=== PATIENT | male | born 1960 | race Caucasian/White ===

== ENCOUNTER 2018-02-16 09:20 | Day surgery (SDC) | payer MEDICAID, SELFPAY ==
--- NOTE | 2018-02-16 09:31 | EKG12_ITS ---
Test Reason : PRE OP Blood Pressure : / mmHG Vent. Rate : 096 BPM Atrial Rate : 096 BPM P-R Int : 140 ms QRS Dur : 090 ms QT Int : 364 ms P-R-T Axes : 035 021 037 degrees QTc Int : 459 ms Normal sinus rhythm Normal ECG Confirmed by MONET GARCÍA, MATTHEW ([id number]), content editor KRISTINE ABERNATHY ([id number]) on 02/22/2018 2:25:42 PM Referred By: Marlo Andrews Confirmed By:MATTHEW HEALY MD
[2018-02-16 09:43] VITALS: BP 167/91; PULSE 96; RESP 18; TEMP 37.2; O2SAT 96; BMI 28.3
[2018-02-16 09:47] LABS: Hematocrit 45.4 % (40-54); Hemoglobin 15.6 g/dl (13.0-16.5); Mean Corp Hgb Conc 34.4 g/gl (32-36); Mean Corpuscular Hgb 31.4 pg (27.0-32.0); Mean Corpuscular Volume 91.3 fL (80-94); Mean Platelet Vol. 10.1 fl (6.2-12.0); Platelet Count 197 K/mm3 (150-450); RBC Distribution Width CV 12.5 % (11.6-14.6); RBC Distribution Width SD 41.8 fl (35.1-43.9); Red Blood Count 4.97 M/mm3 (4.6-6.2); Scan Indicated on CBC? Y/N NO
[2018-02-16 10:03] LABS: Prothrombin Time (Protime)PT. 13.2 SECONDS (11.7-14.9)
[2018-02-16 10:04] LABS: Partial Thromboplast Time 29.4 Seconds (24.1-36.2)
[2018-02-16 10:12] LABS: AST(SGOT) 33 U/L (15-37); Alanine Aminotransfer ALT/SGPT 45 U/L (16-61); Albumin, Serum 4.2 g/dL (3.2-5.0); Alkaline Phosphatase 83 U/L (45-117); Anion Gap 9 (5-15); BUN 12 mg/dL (7-18); BUN/Creat Ratio 12.2 RATIO (10-20); Bilirubin, Direct 0.09 mg/dL (0.00-0.30); Calcium,Total 8.9 mg/dL (8.5-10.1); Chloride 102 mmol/L (98-107); Creatinine, Serum 0.99 mg/dL (0.70-1.30); EST Glomerular Filtration Rate 83 mL/min (>60); Est Glom Filt Rate - Afr Amer 100 mL/min (>60); Estimated Creatinine Clearance 82.32 ml/min; Globulin 3.9 g/dL (2.2-4.2); Glucose 110 mg/dL (74-106); Potassium 3.9 mmol/L (3.5-5.1); Protein, Total 8.1 g/dL (6.4-8.2); Sodium Level 138 mmol/L (136-145)
[2018-02-16] MEDS: Oxymetazoline 0.05% 1 SPRAY SPRAY.BTL 15 SPRAY (11:34)
[2018-02-16] MEDS: Lidocaine 4% 50 ML Bottle (11:34)
--- NOTE | 2018-02-16 11:35 | SEP_PTH ---
PATIENT: CEDRICK DHILLON . [place] [facility] [place][id number] AGE/SX: 57/M ROOM: RE02/16/[address]: Dr. Marlo Andrews MD : 1960 BED: DIS: 02/16/2018 SPEC #: [id number] RECD: 02/16/18 13:16 STATUS: COLEENArlen GILL #: [id number] FELICIA: 02/16/18 11:[address]: Marlo Andrews DEPT: SURGICAL PATHOLOGY RECD BY: Alexy Joe ENTERED: 02/16/18 13:41 SP TYPE: SEPTUM OTHR DR: No Primary Care Phys Tissues: A - Nasal septum, NOS B - Ethmoid sinus, NOS Procedures: Decalcification bone/plaque Surgery Specimen Level III Surgery Specimen Level IV HEADER OPERATION: Endoscopic nasal/sinus with partial ethmoidectomy PRE-OP DIAGNOSIS: Polyp of nasal sinus TISSUE SUBMITTED: A ? Right nasal septum contents, B ? Right sinus contents MICROSCOPIC DIAGNOSIS A. Right nasal septum contents: Fragments of bone and cartilage, clinically nasal septum. B. Right sinus contents: Fragments of respiratory mucosa with chronic inflammation. Fragments of cartilage. SJ:lincoln 02/20/18 MICROSCOPIC DESCRIPTION Slides are reviewed. GROSS DESCRIPTION A - Received in fixative is one container labeled with the patient's name and designated right nasal septum contents. The specimen consists of a red-medina bony tissue measuring 2.5 x 0.8 x 0.5 cm. The specimen is submitted in its entirety in one cassette after decalcification. B - Received in fixative is one container labeled with the patient's name and designated right sinus contents. The specimen consists of multiple irregular and polypoid fragments of pink-medina soft tissue that in aggregate measure 2.5 x 2 x 0.3 cm. The specimen is totally submitted in one cassette. / AM:lincoln 02/16/18 TC:3 CPT: 94226, 04089, 79901
[2018-02-16] MEDS: Bacitracin 500 UNITS/GM PACKET (12:40)
[2018-02-16] MEDS: Silver Nitrate (BKC) 1 EACH (12:42)
--- NOTE | 2018-02-16 12:53 | DCINST_ITS ---
You will use the following diet at home:: No restrictions Your food should be the consistency of: Regular Discharge Activity: Return to Normal Activity Call your doctor if your incision/area has: Sudden Increased Bleeding Call your doctor if you observe: Fever of 101 or Higher, Uncontrolled pain Allergies/Adverse Reactions: Allergies No Known Allergies Allergy (Verified 02/12/18 13:54) Medications to take at Discharge Amitriptyline HCl [Elavil] 25 mg PO QHS 02/12/18 RX: Aspirin E.C. [Ecotrin] 81 mg PO DAILY@0800 02/12/18 RX: Hydrochlorothiazide 12.5 mg PO DAILY 02/12/18 RX: Loratadine 10 mg PO DAILY 02/12/18 RX: Melatonin 5 mg PO DAILY 02/12/18 Simvastatin [Zocor] 40 mg PO QHS 02/12/18 Primary Care Physician: Care Physician,No Primary [Primary Care Provider] - Test Results: Test results from this visit will be discussed in further detail at your follow- up appointment, if applicable. Please Follow Up With: Marlo Andrews MD When: 2 weeks
[2018-02-16 13:01] VITALS: BP 136/91; BP 167/91; PULSE 96; RESP 18; TEMP 37.1; O2SAT 91
--- NOTE | 2018-02-16 13:02 | OP.PCM_ITS ---
Problem List (1) Deviated nasal septum Status: Chronic (2) Chronic ethmoidal sinusitis Status: Chronic (3) Polyp of nasal cavity Status: Chronic Report of Operation Date of Procedure: 02/16/18 Pre-Operative Diagnosis: Deviated nasal septum, right nasal polyp with chronic ethmoid sinusitis Post-Operative Diagnosis: same Surgery/Procedure Performed:: Septoplasty, right endoscopic resection of anterior middle turbinate polyp Description of Surgical Findings:: Merlin is a 57-year-old male presents for evaluation and on clinical exam had a large soft tissue mass within the right nasal cavity. CT scan showed this to be an isolated polyp arising from the middle turbinate and ethmoid sinuses as well as a large nasal septal spur in the right side obstructing the ostiomeatal complex and the above procedure was offered in hopes of positive identification of the mass and relief of obstruction complaints. He is eager to proceed. The risks, alternatives, potential benefits, and complications were discussed at length and any questions answered to the patient and/or caregiver's satisfaction. Witnessed informed consent was obtained in the office, and the patient and/or caregiver was agreeable to proceed. Procedure went as follows: The patient was identified in the preoperative holding and brought to the operating room, was placed under general anesthesia and intubated. When appropriate anesthesia was obtained, pledgets soaked in a 50-50 mixture of oxymetazoline and 4% topical lidocaine were placed to decongest the nasal mucosa. The nasal septum was then injected beginning on the left side with 1% lidocaine with 100,000 epinephrine for a total of 3 cc. The pledgets were then removed and the left nasal cavity examined. There was noted to be significant nasal septal deviation to the right with a septal spur. Using a Radha elevator, a incision was then made in the right side and using the [place] elevator a subperichondrial/periosteal flap was elevated. The septum was then transected anteriorly to the bony spur and similar flap raised on the contralateral side. The bony spur was then removed with a Lenin forceps allowing for midline placement of the nasal septum. The incision was then closed with a 4-0 plain quilting suture to reapproximate the mucosal flaps. The insertion of the right middle turbinate and uncinate process was then injected with 1% lidocaine with 100,000 epinephrine for a 2 cc total. Under endoscopic visualization, the anterior aspect the of the right middle turbinate , which was the site of a large polypoid mass, was then excised and sent as pathologic specimen. The wound edge was then cauterized with silver nitrate for hemostasis. An NG tube was then placed to decompress the stomach and the patient returned to anesthesia, revived and extubated having tolerated the procedure well. De Leon splints coated with Bacitracin ointment were then applied to each nasal cavity and secured at the columella with a single 3-0 Prolene suture. An NG tube was then placed to decompress the stomach and the patient returned to anesthesia, revived and extubated having tolerated the procedure well. Type of Anesthesia:: General Anesthesiologist: Marlo Rosenbaum Specimen's removed: none Drains: none Estimated Blood Loss (mL): 100 mL Fluids Replaced: 1200 mL Grafts/Implants Used: none - Complications none - Admit VTE Documentation VTE Present on Admission: No VTE Mechan Device Prophylaxis: SCD's VTE Pharm Prophylaxis ordered?: No
[2018-02-16 13:15] VITALS: BP 122/65; BP 167/91; PULSE 85; RESP 18; O2SAT 93
[2018-02-16 13:33] VITALS: BP 111/64; BP 167/91; PULSE 80; RESP 16; O2SAT 94
[2018-02-16 13:41] VITALS: BP 118/69; BP 167/91; PULSE 79; RESP 16; TEMP 36.9; O2SAT 93
[2018-02-16 14:06] VITALS: BP 167/91
== END 2018-02-16 14:08 | disposition home or self-care (01) ==
LOC: SDC 09:22 → AC 09:24
PROVIDERS: Visit Provider Otolaryngology
PROC: (CPT 30520; principal; 2018-02-16 11:20)
PROC: (CPT 30520; 2018-02-16 11:20)
DX: J34.2 Deviated nasal septum (principal); J32.2 Chronic ethmoidal sinusitis; J33.8 Other polyp of sinus; F32.9 Major depressive disorder, single episode, unspecified; E78.00 Pure hypercholesterolemia, unspecified; Z79.82 Long term (current) use of aspirin; Z79.899 Other long term (current) drug therapy; I10 Essential (primary) hypertension; Z87.891 Personal history of nicotine dependence
CPT/HCPCS: 30520; 31254; 80048; 80076; 85027; 85610; 85730; 88304; 88305; 88311; 93005; J7120; J2405